=== PATIENT | female | born 1990 | race Caucasian/White ===

== ENCOUNTER 2016-07-08 15:15 | Emergency (ER) | payer OTHER ==
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
[2016-07-08] MEDS ORDERED: NS 1,000 ML IV ONE (15:20)
[2016-07-08 15:56] LABS: BASO% 0.6 % (0.0-0.8); EOS# 0.04 X1000 (0.0-0.7); EOS% 0.3 % (0.0-10.0); HEMATOCRIT 35.7 % (37.0-47.0); HEMOGLOBIN 11.6 g/dL (12.0-16.0); IMM GRAN# 0.02 X1000 (0.0-0.04); IMM GRAN% 0.2 % (0.0-0.5); LYMPH# 4.32 X1000 (1.2-3.4); MANUAL DIFF NEEDED? YES; MCH 24.3 PG (27-31); MCHC 32.5 g/dL (33-37); MCV 74.8 FL (81-99); MONO# 0.87 X1000 (0.11-0.59); MONO% 7.3 % (1.7-9.3); MPV 9.2 FL (7.4-10.4); NEUT% 55.6 % (42.2-75.2); PLT 421 X1000 (130-400); RBC 4.77 XMIL (4.2-5.4)
[2016-07-08 15:57] LABS: ALLEN TEST YES; BE 0.1 mmoll (-3.0-3.0); BLOOD TYPE ARTERIAL; DRAW SITE R RADIAL; METHB 1.8 % (0.0-1.5); O2(CT) 13.2 mL/dL (15.0-23.0); PCO2(98.6) 29 mmHg (35-45); PO2(98.6) 60 mmHg (60-100); SAMPLE BLOOD; THB 10.6 g/dL (11.5-17.4)
[2016-07-08 16:02] LABS: MODALITY ROOM AIR
[2016-07-08 16:03] LABS: AGAP 22; ALBUMIN 4.7 g/dL (3.5-5.0); ALKALINE PHOSPHATASE 59 U/L (32-104); AMYLASE 74 U/L (20-200); BUN 14 mg/dL (8-22); CALCIUM 9.7 mg/dL (8.8-10.2); CHLORIDE 101 mmol/L (98-107); COSMO 280; GOT 13 U/L (10-30); GPT 9 U/L (10-36); POTASSIUM 3.2 mmol/L (3.5-5.1); SODIUM 140 mmol/L (136-145); TCO2 17 mmol/L (25-35); TOTAL BILIRUBIN 0.53 mg/dL (0.20-1.00); TOTAL PROTEIN 7.3 g/dL (6.3-8.3)
[2016-07-08 17:50] LABS: LYMPHS 28 % (21-51); MONO 4 % (1-9)
[2016-07-08 17:52] LABS: HYPOCHROM 1+; POLYCHROM OCCASIONAL; TARGET CELLS OCCASIONAL
[2016-07-08 17:53] LABS: LARGE PLATELETS OCCASIONAL
--- NOTE | 2016-07-08 18:04 | Diag Imaging Result Document ---
PROCEDURE NAME: WRIST COMPLETE LEFT - 07/08/2016 LEFT WRIST THREE VIEWS: FINDINGS: No fracture. No dislocation. IMPRESSION: No acute bony injury.
--- NOTE | 2016-07-08 18:10 | Diag Imaging Result Document ---
PROCEDURE NAME: HEAD/C-SPINE/THORAX/PELVIS/ABD - 07/08/2016 STUDY: CT brain, cervical spine, chest, abdomen and pelvis with intravenous contrast. BRAIN WITHOUT: No parenchymal hemorrhage. No epidural or subdural hematoma. No subarachnoid hemorrhage No skull fracture. No mass identified on this noncontrasted exam. No hydrocephalus. No sinus opacification. IMPRESSION: No hemorrhage. No injury. CT CERVICAL SPINE WITHOUT CONTRAST: There is good alignment of the cervical spine. No precervical soft tissue swelling. No subluxation. No fracture. IMPRESSION: No acute bony injury. CHEST WITH INTRAVENOUS CONTRAST: No pleural effusions. No contusions or pneumothoraces. No blood in the mediastinum. Normal thoracic aorta. No cardiomegaly. No infiltrates. No compressed vertebra. IMPRESSION: No injury. ABDOMEN AND PELVIS WITH INTRAVENOUS CONTRAST: There is normal opacification of the liver and spleen. No hepatic or splenic laceration. No fluid in either pericolic gutter. Normal enhancement of the kidneys. No retroperitoneal hematoma. Normal pancreas, gallbladder, and adrenal glands. Normal aorta. No bowel obstruction. Normal appendix. The urinary bladder is moderately distended and appears normal. Normal uterus and ovaries. No compressed lumbar vertebra. Neither hip is dislocated. IMPRESSION: No injury. A preliminary report was given at 5:37 p.m. MTDD
[2016-07-08] MEDS ORDERED: DILAUDID IM ONE (18:45)
[2016-07-08 20:07] VITALS: BP 122/76
--- NOTE | 2016-07-09 10:40 | Diag Imaging Result Document ---
PROCEDURE NAME: KNEE 3 VIEWS RIGHT - 07/08/2016 PORTABLE RIGHT KNEE, 3 VIEWS: FINDINGS: There is no fracture or dislocation identified. There is no other substantial abnormality identified. IMPRESSION: No evidence of fracture or dislocation.
== END 2016-07-08 20:07 | disposition home or self-care (01) ==
LOC: EDBD → ED 15:15
DX: S60.212A Contusion of left wrist, initial encounter (principal); S46.912A Strain of unspecified muscle, fascia and tendon at shoulder and upper arm level, left arm, initial encounter; F45.8 Other somatoform disorders; M54.5 Low back pain; R06.02 Shortness of breath; M25.532 Pain in left wrist; R07.89 Other chest pain; R20.0 Anesthesia of skin; M25.512 Pain in left shoulder; G89.29 Other chronic pain; F17.210 Nicotine dependence, cigarettes, uncomplicated; Z71.6 Tobacco abuse counseling; Z87.42 Personal history of other diseases of the female genital tract; Z87.440 Personal history of urinary (tract) infections; V49.40XA Driver injured in collision with unspecified motor vehicles in traffic accident, initial encounter
CPT/HCPCS: 70450; 71260; 72125; 74177; 80053; 82150; 82805; 84703; 85025; 96372; J1170; J7030; Q9967